=== PATIENT | female | born 1990 | race African-American/Black ===

== ENCOUNTER 2016-06-28 00:36 | Emergency (ER) | payer OTHER ==
[~2016-06-28] VITALS: Ht 177.8 cm; Wt 72.6 kg
--- NOTE | 2016-06-28 02:28 | NUR ---
pt ambulatory w/ steady gait to rm, c/o rt calf pain radiating to rt thigh s/p taking new control medication x1 wk. AOx4, afebrile w/ resp even & unlabored, good CMS w/ ROM noted to all extremities w/ nad noted. pt in gown, pending further nneka tucker MD.
--- NOTE | 2016-06-28 02:38 | NUR ---
Dr. Quiroga at bedside for further eval.
--- NOTE | 2016-06-28 02:43 | NUR ---
cable television technician at bedside for blood draw.
[2016-06-28 02:55] LABS: BASOPHILS % (AUTO) 0.6 % (0.0-2.0); EOSINOPHILS % (AUTO) 0.7 % (0.0-6.0); HEMATOCRIT 39 % (33-45); HEMOGLOBIN 12.8 g/dL (11.5-14.8); LYMPHOCYTES # (AUTO) 2.3 /CMM (0.8-4.8); LYMPHOCYTES % (AUTO) 34.7 % (20.0-44.0); MEAN CORPUSCULAR HEMOGLOBIN 31 PG (26.0-33.0); MEAN CORPUSCULAR HGB CONC 33 g/dl (31.0-36.0); MEAN CORPUSCULAR VOLUME 94 fL (82-100); MONOCYTES # (AUTO) 0.4 /CMM (0.1-1.30); MONOCYTES % (AUTO) 5.7 % (2.0-12.0); NEUTROPHILS # (AUTO) 3.9 /CMM (1.8-8.9); NEUTROPHILS % (AUTO) 58.3 % (43.0-81.0); PLATELET COUNT (AUTO) 395 /CMM (150-450); RDW COEFFICIENT OF VARIATION 12.7 (11.5-15.0); RED BLOOD CELL COUNT(AUTO) 4.11 MIL/uL (4.0-5.2); WHITE BLOOD COUNT (AUTO) 6.8 K/uL (4.3-11.0)
[2016-06-28 03:10] LABS: CALCIUM, SERUM 8.6 mg/dL (8.5-10.1); CREATININE 0.9 mg/dL (0.6-1.3); POTASSIUM 3.6 mmol/L (3.5-5.1)
[2016-06-28 03:15] LABS: D-DIMER 0.19 mg/L(FEU (0.17-0.50); INR 0.98 (0.87-1.13); PROTHROMBIN TIME 10.5 SECS (9.5-12.7)
--- NOTE | 2016-06-28 03:23 | NUR ---
pt resting comfortably in bed w/ resp even & unlabored, nad noted. Awaiting test results.
--- NOTE | 2016-06-28 03:36 | NUR ---
Dr. Quiroga at bedside for update on pt status.
--- NOTE | 2016-06-28 03:40 | NUR ---
Patient discharged to home in stable condition. Written and verbal after care instructions given. Patient verbalizes understanding of instruction.
[2016-06-28 03:41] VITALS: BP 128/78
== END 2016-06-28 03:42 | disposition home or self-care (01) ==
LOC: ER 00:42
DX: M79.661 Pain in right lower leg (principal); Z88.0 Allergy status to penicillin
CPT/HCPCS: 36415; 80048-TC; 84703-TC; 85025-TC; 85378-TC; 85730-TC; A4606; Z7610